=== PATIENT | female | born 1955 | race Caucasian/White ===

== ENCOUNTER 2024-04-09 13:00 | Emergency (ER) | payer MEDICARE, OTHER ==
[2024-04-09 13:34] LABS: BASOPHILS ABSOLUTE AUTO 0.02 10^3/uL (0.00-0.10); BASOPHILS PERCENT AUTO 0.2 % (0.0-1.0); HEMATOCRIT 39.3 % (37.0-47.0); HEMOGLOBIN 13.4 g/dL (12.0-16.0); IMMATURE GRAN ABSOLUTE AUTO 0.01 10^3/uL (0.00-0.50); IMMATURE GRAN PERCENT AUTO 0.1 % (0.0-5.0); LYMPHOCYTES ABSOLUTE AUTO 0.48 10^3/uL (1.00-4.00); LYMPHOCYTES PERCENT AUTO 4.4 % (20.0-40.0); MEAN CORPUSCULAR HEMOGLOBIN 30.2 pg (27.0-31.0); MEAN CORPUSCULAR HGB CONC 34.1 g/dL (32.0-36.0); MEAN CORPUSCULAR VOLUME 88.5 fL (82.0-92.0); MEAN PLATELET VOLUME 10.7 fL (7.4-10.4); MONOCYTES ABSOLUTE AUTO 0.31 10^3/uL (0.10-0.80); MONOCYTES PERCENT AUTO 2.8 % (2.0-8.0); NEUTROPHILS ABSOLUTE AUTO 10.14 10^3/uL (2.50-7.00); NEUTROPHILS PERCENT AUTO 92.5 % (50.0-70.0); PLATELET COUNT,PLT 254 10^3/uL (150-400); RED BLOOD CELL COUNT 4.44 10^6/uL (3.80-5.50); RED CELL DISTRIBUTION WIDTH 12.7 % (11.5-14.5); WHITE BLOOD CELL COUNT,WBC 10.96 10^3/uL (5.00-10.00)
[2024-04-09] MEDS ORDERED: Tenecteplase 50 MG Kit ONE (13:36)
[2024-04-09] MEDS: Aspirin 81 MG Tab.Chew PO ONE (13:39)
[2024-04-09] MEDS: Aspirin 81 MG Tab.Chew ONE (13:39)
[2024-04-09 13:49] LABS: ALANINE AMINOTRANSFERASE,ALT 27 U/L (14-63); ALBUMIN 3.41 g/dL (3.40-5.00); ALKALINE PHOSPHATASE 66 U/L (46-116); ANION GAP 10.4 mmol/L (5-15); ASPARTATE AMNIOTRANSFERASE,AST 71 U/L (15-37); BILIRUBIN TOTAL 0.4 mg/dL (0.2-1.0); BLOOD UREA NITROGEN,BUN 15 mg/dL (7-18); CALCIUM 9.6 mg/dL (8.7-10.3); CARBON DIOXIDE,CO2 27.4 mmol/L (21.0-32.0); CHLORIDE,CL 96 mmol/L (98-107); CREATININE 0.76 mg/dL (0.51-1.17); EST CRCL DRUG DOSING (CG) 64.48 mL/min; GLUCOSE RANDOM 138 mg/dL (70-140); MAGNESIUM 2.1 mg/dL (1.8-2.4); POTASSIUM,K 3.8 mmol/L (3.5-5.1); PROTEIN TOTAL,TP 6.7 g/dL (6.4-8.2); SODIUM,NA 130 mmol/L (136-145)
[2024-04-09] MEDS: Heparin Sodium 5,000 Units/ML Vial IVPUSH ONE (13:53)
[2024-04-09] MEDS: Heparin Sodium/D5W 250 ML IV SCH (13:53)
[2024-04-09 13:54] LABS: ESTIMATED GFR 84 mL/min (>=60)
[2024-04-09 13:56] LABS: C-REACTIVE PROTEIN < 0.50 mg/dL (0.00-0.50)
[2024-04-09] MEDS ORDERED: Heparin Sodium/D5W 500 ML IV SCH (14:00)
[2024-04-09] MEDS: Sodium Chloride 0.9% 1,000 ML IV SCH (14:03)
[2024-04-09] MEDS: Tenecteplase 50 MG Kit IVPUSH ONE (14:36)
[2024-04-09] MEDS: Sodium Chloride 0.9% 1,000 ML ONE (15:37)
[2024-04-09] MEDS ORDERED: Sodium Chloride 0.9% 1,000 ML ONE (15:37)
== END 2024-04-09 14:48 ==
LOC: KA.ED 13:00
DX: I21.9 Acute myocardial infarction, unspecified (principal); Z91.041 Radiographic dye allergy status
CPT/HCPCS: 36415; 71045; 80053; 83605; 83735; 84484; 85025; 86140; 96365; 96375; 99291; A9270; J1644; J3101; J7030; Q3014; 93010; 99284